=== PATIENT | female | born 1975 | race Caucasian/White ===

== ENCOUNTER → 2017-05-14 | Outpatient (CLI) | payer OTHER ==
--- NOTE | 2017-05-15 10:05 | REP ---
PELVIC SONOGRAPHY: HISTORY: Breakthrough bleeding. FINDINGS: Transabdominal and transvaginal scanning are performed. Uterine dimensions are normal at 8.8 x 4.3 x 5.5 cm. Endometrial stripe measures 0.8 cm. There is an anterior fibroid 1.6 cm in greatest diameter. No other focal uterine mass is seen. Visualized bladder ribeiro are smooth. Normal ovaries are seen. Right ovary dimensions are 1.8 x 1.9 x 2.5 cm. The left ovary measures 2.1 x 1.3 x 1.8 cm. Doppler flow is normal to both ovaries. Resistive indices are measured at 0.52 on the right and 0.36 on the left. IMPRESSION: 1.6 cm anterior fibroid seen. Otherwise, normal pelvic sonography.
--- NOTE | 2017-05-15 10:11 | REPMRS ---
Patient History The patient states she has not had a clinical breast exam in over a year. No known family history of cancer. Taking hormonal contraceptives for 1 year. Digital Woman Screen Mammo: May 14, 2017 - Exam #: [id number] Bilateral CC and MLO view(s) were taken. Technologist: Tena Edwards Technologist Prior study comparison: May 07, 2016, digital woman screen mammo performed at [facility]. FINDINGS: There are scattered fibroglandular densities. There has been no change in the appearance of the mammogram from the prior studies. There is a mild amount of scattered fibroglandular density which is fairly symmetric. There is no interval development of dominant mass, architectural distortion, or clustered microcalcification suggestive of malignancy. ASSESSMENT: BI-RADS/ACR category 1 mammogram. Negative. Recommendation Routine screening mammogram in 1 year (for women over age 40). This mammogram was interpreted with the aid of an FDA-approved computer-aided dectection system. Electronically Signed By: Neftali Anthony MD 05/15/17 1010
== END ==
LOC: M WHC 14:08
PROVIDERS: ATTEND Nurse Practitioner Women's Health
DX: Z12.31 Encounter for screening mammogram for malignant neoplasm of breast (principal); N92.1 Excessive and frequent menstruation with irregular cycle; Z79.3 Long term (current) use of hormonal contraceptives; D25.9 Leiomyoma of uterus, unspecified
CPT/HCPCS: 76830; 76856; G0202

== ENCOUNTER → 2018-05-08 | Outpatient (CLI) | payer OTHER | LOC: M WHC 15:08 | DX: Z12.31 Encounter for screening mammogram for malignant neoplasm of breast (principal); Z92.0 Personal history of contraception | CPT/HCPCS: 77067 ==

== ENCOUNTER → 2018-06-22 | Outpatient (REF) | payer OTHER ==
[~2018-06-22] MED LIST: BUSP10TA PO; FLUO20CA8 PO; LEVO125T4 PO; MELO15TA28 PO; VITA100067 PO
[2018-06-23 12:07] LABS: FREE T4 0.99 NG/DL (0.76-1.46); THYROID STIMULATING HORMONE 1.38 uIU/ML (0.358-3.740)
[2018-06-24 09:59] LABS: THYROID PEROXIDASE ANTIBODY 34.6 U/ML (<60.0)
== END ==
LOC: M LABDRAWC 08:30
PROVIDERS: ATTEND Nurse Practitioner Family
DX: E03.9 Hypothyroidism, unspecified (principal)

== ENCOUNTER 2018-06-25 05:45 | Day surgery (SDC) | payer OTHER ==
[~2018-06-25] VITALS: Ht 177.8 cm; Wt 104.3 kg
[2018-06-25] MEDS ORDERED: LR 1,000 ML IV ONE (06:00)
[2018-06-25] MEDS ORDERED: METHYLENE BLUE 0.5% (5MG/ML) 10 ML AMP (PROVAYBLUE)(Q9968 PER 1MG) As Ordered ONE (06:56)
[2018-06-25] MEDS ORDERED: ROCURONIUM BROMIDE 50 MG/5 ML VIAL As Ordered ONE ×2 (06:57→08:25)
[2018-06-25] MEDS ORDERED: LIDOCAINE 2% INJ 100 MG/5 ML SDV (FOR ANES.) As Ordered ONE (06:57)
[2018-06-25] MEDS ORDERED: MIDAZOLAM INJ 2 MG/2 ML VIAL (J2250) As Ordered ONE (06:57)
[2018-06-25] MEDS ORDERED: fentaNYL 250 MCG/5 ML INJECTION (J3010) As Ordered ONE (06:57)
[2018-06-25] MEDS ORDERED: PROPOFOL 200 MG/20 ML VIAL As Ordered ONE (06:57)
[2018-06-25] MEDS ORDERED: dexameTHASONE 4 MG/ML 1ML VIAL (J1100) As Ordered ONE (06:57)
[2018-06-25] MEDS ORDERED: ONDANSETRON 4MG/2ML VIAL (J2405) As Ordered ONE ×2 (06:57→08:27)
[2018-06-25 07:06] LABS: HEMATOCRIT 43.8 % (36.0-47.0); HEMOGLOBIN 14.4 g/dl (12.0-15.5); MEAN CORPUSCULAR HEMOGLOBIN 30.2 pg (27.0-33.0); MEAN CORPUSCULAR HGB CONC 32.9 g/dl (32.0-36.5); MEAN CORPUSCULAR VOLUME 91.8 fl (80.0-96.0); PLATELET COUNT, AUTOMATED 334 10^3/uL (150-450); RED BLOOD COUNT 4.77 10^6/uL (4.00-5.40); WHITE BLOOD COUNT 8.4 10^3/uL (4.0-10.0)
[2018-06-25 07:17] LABS: HCG, SERUM QUALITATIVE NEGATIVE (NEGATIVE)
[2018-06-25] MEDS ORDERED: METOCLOPRAMIDE INJ 10MG/2ML VIAL (J2765) As Ordered ONE (07:17)
[2018-06-25] MEDS ORDERED: SCOPOLAMINE 1MG TRANSDERMAL PATCH As Ordered ONE (07:19)
[2018-06-25] MEDS ORDERED: SCOPOLAMINE 1MG TRANSDERMAL PATCH TOP ONE (07:30)
[2018-06-25] MEDS ORDERED: ePHEDrine SULFATE 25 MG/5 ML(5MG/ML) SYRINGE As Ordered ONE (07:53)
[2018-06-25] MEDS ORDERED: SUGAMMADEX SODIUM 500 MG/5 ML VIAL (BRIDION) As Ordered ONE (08:25)
[2018-06-25] MEDS ORDERED: KETOROLAC 60 MG/2 ML VIAL (J1885) As Ordered ONE (08:27)
[2018-06-25] MEDS ORDERED: MORPHINE 1MG/ML IN 0.9% NACL 100ML IV BAG As Ordered ONE (10:04)
[2018-06-25] MEDS ORDERED: LR 1,000 ML IV SCH (10:30)
[2018-06-25] MEDS ORDERED: NALOXONE INJ 0.4 MG/1 ML VIAL (J2310) IV PRN (10:30)
[2018-06-25] MEDS ORDERED: fentaNYL 100 MCG/2 ML INJECTION (J3010) IV PRN (10:30)
[2018-06-25] MEDS ORDERED: ONDANSETRON 4MG/2ML VIAL (J2405) IV PRN (10:30)
[2018-06-25] MEDS ORDERED: EPIDURAL/PCA KEYS XX PRN (10:30)
[2018-06-25] MEDS ORDERED: NALBUPHINE HCL 10 MG/ML AMP (J2300) IV PRN (10:30)
[2018-06-25] MEDS ORDERED: PERCOCET 5MG/325MG TAB PO PRN (10:30)
[2018-06-25] MEDS ORDERED: diphenhydrAMINE INJ 50MG/ML VIAL (J1200) IV PRN (10:30)
[2018-06-25] MEDS ORDERED: MORPHINE 1MG/ML IN 0.9% NACL 100ML IV BAG IV PRN (10:30)
[2018-06-25] MEDS ORDERED: METOCLOPRAMIDE INJ 10MG/2ML VIAL (J2765) IV PRN (10:30)
[2018-06-25 11:15] VITALS: BP 130/76
[2018-06-25 11:45] VITALS: BP 140/70
[2018-06-25 12:45] VITALS: BP 138/73
--- NOTE | 2018-06-25 13:07 | RO ---
DATE OF PROCEDURE: 06/25/2018 PREOPERATIVE DIAGNOSES/INDICATION FOR SURGERY: Pain, bleeding, fibroids. POSTOPERATIVE DIAGNOSES: Pain, bleeding, fibroids. PROCEDURE: Robotic-assisted hysterectomy with bilateral salpingectomy and removal of intrauterine device (IUD). SURGEON: Dr. Norma Finnegan ENVELOPE STUFFER: Camelia Pollock ANESTHESIA: General endotracheal anesthesia. BRIEF DESCRIPTION OF PROCEDURE AND FINDINGS: Marleny was brought to the operating room, where sufficient general endotracheal anesthesia was induced. She was prepped, draped, and positioned in the usual sterile fashion with the IUD, which had failed to control her bleeding and pain removed and then the uterine manipulator placed and the Garnica catheter with the ability to backfill placed. We then turned our attention to the abdomen. A transverse, semilunar incision was made below the umbilicus. Sharp and blunt dissection were continued through the subcutaneous tissues to the level of the rectus fascia, which was carefully transversely incised under direct visualization, secured with #0 Vicryl retention sutures, and then the peritoneum entered under direct visualization, and the Manan cannula placed under direct visualization in an open laparoscopic technique. The CO2 insufflation was then begun. After adequate CO2 insufflation, the robot camera was used to visualize the abdomen and the peritoneal cavity. There were normal, shiny peritoneal surfaces throughout, with the exception in the left lower quadrant of a hernia repair, which was photographed. There were no excrescence, no ascites, no exudate, and the scarring was less than feared. The uterus was manipulated, and a left paratubal cyst was noted, but the ovaries themselves were normal in appearance, as hoped. Two left-left sided, one right side port for the operative tools were placed, and the robot was then docked, as is typical. I then moved to the console for the console work. The left then right tubes were carefully cauterized around the mesentery with care taken to avoid injury to the ovaries and then carefully the mesentery transected leaving the tubes attached to the uterus, but not to the patient. We then carefully cauterized and transected the utero-ovarian suspensory ligaments then the round ligaments bilaterally, and then carefully dissected through the broad ligament to let the ureters fall laterally and let the bladder be displaced anteriorly out of the way of the operative field. We then had some large vessels lateral to the uterus, especially on the left side, as we carefully cauterized these we, of course, backfilled the bladder so we knew we had the bladder displaced away from the operative field. After we had controlled the uterine vasculature, the uterus was elevated, and posteriorly we began with our colpotomy working carefully around to anteriorly and we began that incision just above the insertion of the uterosacrals leaving optimal support in this hysterectomy for benign indication, then carefully continued the dissection around the left side watching those vessels and then across the front and then carefully completed the transection of the vaginal cuff along the right side. The uterus was then removed into the vagina and used to maintain the peritoneum. V-Loc suture was then used to close the cuff. There was some bleeding along the patient's left side and so a third V-Loc suture, after two angle stitches and closure of the cuff we still had to come in with a third V-Loc, close that spot, and we let the pressure down and removed the uterus from the vagina to make sure that we were recreating the conditions that she would have after the end of the case as much as possible, especially, since the first time we let the pressure down, we had that oozing and had to come back again with that third suture; but, having done this, we did have good hemostasis. We had already irrigated and cleared the abdomen, and procedure was then ended with the CO2 allowed to escape the peritoneal cavity. Fascial wound at the umbilicus closed with #0 Vicryl suture and each of the skin wounds closed with #3-0 Vicryl in subcuticular stitches, and dry, sterile dressings then applied. ESTIMATED BLOOD LOSS FOR THE PROCEDURE: About 150 mL. FLUID REPLACEMENT: Was crystalloid. COMPLICATIONS: None. CONDITION AND DISPOSITION: Marleny Grant tolerated the procedure well and was recovering in the recovery room in good condition.
[2018-06-25 14:45] VITALS: BP 115/55
[2018-06-25] MEDS: LR 1,000 ML IV SCH ×2 (14:57→21:59)
[2018-06-25 16:00] VITALS: BP 130/59
[2018-06-25 20:00] VITALS: BP 120/59
[2018-06-25] MEDS: IBUPROFEN 600 MG TAB PO PRN (22:00)
[2018-06-26 00:11] VITALS: BP 132/68
[2018-06-26] MEDS: IBUPROFEN 600 MG TAB PO PRN (05:28)
[2018-06-26 05:58] VITALS: BP 125/65
[2018-06-26] MEDS ORDERED: NORCO, ANEXSIA 5/325MG TABLET (HYDROcodone/ACETAMINOPHEN) PO PRN (06:00)
[2018-06-26] MEDS ORDERED: LEVOTHYROXINE 125MCG TABLET (0.125MG) PO SCH (06:00)
[2018-06-26 06:53] LABS: HEMATOCRIT 36.8 % (36.0-47.0); MEAN CORPUSCULAR HGB CONC 33.4 g/dl (32.0-36.5); MEAN CORPUSCULAR VOLUME 92.7 fl (80.0-96.0); PLATELET COUNT, AUTOMATED 301 10^3/uL (150-450); RED BLOOD COUNT 3.97 10^6/uL (4.00-5.40)
[2018-06-26 06:57] LABS: HEMOGLOBIN 12.3 g/dl (12.0-15.5)
[2018-06-26 08:00] VITALS: BP 115/65
[2018-06-26] MEDS ORDERED: busPIRone 10 MG TAB PO SCH (09:00)
[2018-06-26] MEDS ORDERED: FLUoxetine 20 MG CAP PO SCH (09:00)
[2018-06-26 09:13] VITALS: BP 115/65
== END 2018-06-26 09:49 | disposition home or self-care (01) ==
LOC: M SDC 05:45 → M PED 11:15 → M SDC 11:26
PROVIDERS: ATTEND Obstetrics & Gynecology
DX: R10.2 Pelvic and perineal pain (principal); R93.9 Diagnostic imaging inconclusive due to excess body fat of patient; D25.1 Intramural leiomyoma of uterus; N83.8 Other noninflammatory disorders of ovary, fallopian tube and broad ligament; E03.9 Hypothyroidism, unspecified; M54.9 Dorsalgia, unspecified; M12.9 Arthropathy, unspecified; F41.9 Anxiety disorder, unspecified; F32.9 Major depressive disorder, single episode, unspecified; Z88.0 Allergy status to penicillin; Z79.899 Other long term (current) drug therapy
CPT/HCPCS: 36415; 58573; 84703; 85027; 86850; 86900; 86901; 88309; J0690; J1100; J1885; J2250; J2405; J2765; J3010; Q9968

== ENCOUNTER → 2019-06-08 | Outpatient (CLI) | payer OTHER ==
[~2019-06-08] MED LIST changes: +FLUO20CA20 PO; -FLUO20CA8 PO
--- NOTE | 2019-06-08 17:03 | REPMRS ---
Patient History The patient states she had a clinical breast exam in July 2018.The patient states she had a clinical breast exam in May 2019.No known family history of cancer. Taking hormonal contraceptives for 2 years. Digital Woman Screen Mammo: June 08, 2019 - Exam #: [id number] Bilateral CC and MLO view(s) were taken. Technologist: Verónica Dick, Technologist Prior study comparison: May 08, 2018, bilateral digital woman screen mammo performed at [facility]. May 14, 2017, digital woman screen mammo performed at [facility]. May 07, 2016, digital woman screen mammo performed at [facility]. FINDINGS: There are scattered fibroglandular densities. There has been no change in the appearance of the mammogram from the prior studies. There is a mild amount of scattered fibroglandular density which is fairly symmetric. There is no interval development of dominant mass, architectural distortion, or grouped microcalcification suggestive of malignancy. 3-D tomosynthesis shows no additional findings. Assessment: BI-RADS/ACR category 1 mammogram. Negative Mammogram. Recommendation Routine screening mammogram of both breasts in 1 year (for women over age 40). This patient's Lifetime Breast Cancer Risk is estimated at 10.7 %. This mammogram was interpreted with the aid of an FDA-approved computer-aided dectection system. Electronically Signed By: Neftali Anthony MD 06/08/19 5541
== END ==
LOC: M WHC 15:45
PROVIDERS: ATTEND Nurse Practitioner Women's Health
DX: Z12.31 Encounter for screening mammogram for malignant neoplasm of breast (principal); Z79.3 Long term (current) use of hormonal contraceptives

== ENCOUNTER → 2020-10-26 | Outpatient (REF) | payer OTHER ==
[2020-10-26 16:37] LABS: ALBUMIN 3.4 GM/DL (3.2-5.2); ALT/SGPT 27 U/L (12-78); BILIRUBIN,TOTAL 0.5 MG/DL (0.2-1.0); BLOOD UREA NITROGEN 8 MG/DL (7-18); CARBON DIOXIDE LEVEL 29 MEQ/L (21-32); CHLORIDE LEVEL 108 MEQ/L (98-107); CHOLESTEROL LEVEL 258 MG/DL (<200); CHOLESTEROL RISK RATIO 5.058 (<5); CREATININE FOR GFR 0.67 MG/DL (0.55-1.30); GLOMERULAR FILTRATION RATE > 60.0 (>58); GLUCOSE, FASTING 92 MG/DL (70-100); HDL CHOLESTEROL 51 MG/DL (>40); LDL CHOLESTEROL 177 MG/DL (<100); NON-HDL-C 207 MG/DL; POTASSIUM SERUM 4.6 MEQ/L (3.5-5.1); SODIUM LEVEL 140 MEQ/L (136-145); TRIGLYCERIDES LEVEL 148 MG/DL (<150)
== END ==
LOC: M LABDRAWC 15:27
PROVIDERS: ATTEND Internal Medicine
DX: E78.5 Hyperlipidemia, unspecified (principal); F41.9 Anxiety disorder, unspecified; E03.9 Hypothyroidism, unspecified

== ENCOUNTER → 2021-03-27 | Outpatient (REF) | payer OTHER | LOC: M WUC 11:08 | PROVIDERS: ATTEND Physician Assistant | DX: R30.0 Dysuria (principal) ==

== ENCOUNTER → 2021-09-03 | Outpatient (REF) | payer OTHER ==
[~2021-09-03] MED LIST changes: +FLUO-96 PO; -FLUO20CA20 PO
[2021-09-03 12:18] LABS: ALBUMIN 3.5 GM/DL (3.2-5.2); ALT/SGPT 31 U/L (12-78); BILIRUBIN,TOTAL 0.5 MG/DL (0.2-1.0); BLOOD UREA NITROGEN 9 MG/DL (7-18); CALCIUM LEVEL 9.5 MG/DL (8.5-10.1); CARBON DIOXIDE LEVEL 30 MEQ/L (21-32); CHLORIDE LEVEL 108 MEQ/L (98-107); CHOLESTEROL LEVEL 199 MG/DL (<200); CHOLESTEROL RISK RATIO 3.015 (<5); GLOMERULAR FILTRATION RATE > 60.0 (>58); GLUCOSE, FASTING 90 MG/DL (70-100); HDL CHOLESTEROL 66 MG/DL (>40); LDL CHOLESTEROL 112 MG/DL (<100); NON-HDL-C 133 MG/DL; POTASSIUM SERUM 4.3 MEQ/L (3.5-5.1); SODIUM LEVEL 142 MEQ/L (136-145); TOTAL PROTEIN 6.9 GM/DL (6.4-8.2); TRIGLYCERIDES LEVEL 106 MG/DL (<150)
== END ==
LOC: M LABDRAWC 11:04
PROVIDERS: ATTEND Internal Medicine
DX: E03.9 Hypothyroidism, unspecified (principal); E78.5 Hyperlipidemia, unspecified

== ENCOUNTER → 2021-12-18 | Outpatient (CLI) | payer OTHER | LOC: M WHC 08:45 | PROVIDERS: ATTEND Internal Medicine | DX: Z12.31 Encounter for screening mammogram for malignant neoplasm of breast (principal) ==

== ENCOUNTER → 2022-03-21 | Outpatient (CLI) | payer OTHER | LOC: M WHC 15:17 | PROVIDERS: ATTEND Internal Medicine | DX: E03.9 Hypothyroidism, unspecified (principal); Z79.890 Hormone replacement therapy ==

== ENCOUNTER → 2022-08-07 | Outpatient (REF) | payer OTHER | LOC: M WUC 20:00 | PROVIDERS: ATTEND Student in an Organized Health Care Education/Training Program | DX: J02.9 Acute pharyngitis, unspecified (principal) ==

== ENCOUNTER → 2022-12-02 | Outpatient (REF) | payer OTHER ==
[2022-12-02 13:38] LABS: THYROID STIMULATING HORMONE 0.845 uIU/ML (0.55-4.78)
[2022-12-02 13:42] LABS: ALBUMIN 3.3 G/DL (3.2-5.2); ALKALINE PHOSPHATASE 76 U/L (46-116); ALT/SGPT 13 U/L (7.0-40); AST/SGOT < 8 U/L (<34); BILIRUBIN,TOTAL 0.7 MG/DL (0.3-1.2); BLOOD UREA NITROGEN 11 MG/DL (9-23); CALCIUM LEVEL 8.7 MG/DL (8.5-10.1); CARBON DIOXIDE LEVEL 27 MMOL/L (20-31); CHLORIDE LEVEL 106 MMOL/L (98-107); CHOLESTEROL LEVEL 156 MG/DL (<200); CHOLESTEROL RISK RATIO 2.78 (<5); CREATININE FOR GFR 0.61 MG/DL (0.55-1.30); GLOMERULAR FILTRATION RATE > 60.0 (>58); GLUCOSE, FASTING 101 MG/DL (60-100); HDL CHOLESTEROL 56.1 MG/DL (>40); LDL CHOLESTEROL 75.1 MG/DL (<100); NON-HDL-C 99.9 MG/DL; POTASSIUM SERUM 4.4 MMOL/L (3.5-5.1); SODIUM LEVEL 140 MMOL/L (136-145); TOTAL PROTEIN 6.6 G/DL (5.7-8.2); TRIGLYCERIDES LEVEL 124 MG/DL (<150)
== END ==
LOC: M LABDRAWC 12:00
PROVIDERS: ATTEND Internal Medicine
DX: E78.5 Hyperlipidemia, unspecified (principal); E03.9 Hypothyroidism, unspecified

== ENCOUNTER → 2022-12-19 | Outpatient (CLI) | payer OTHER | LOC: M WHC 10:36 | PROVIDERS: ATTEND Internal Medicine | DX: Z12.31 Encounter for screening mammogram for malignant neoplasm of breast (principal) ==

== ENCOUNTER → 2023-04-23 | Outpatient (CLI) | payer OTHER ==
[2023-04-23 16:48] LABS: ALBUMIN 3.6 G/DL (3.2-5.2); ALKALINE PHOSPHATASE 93 U/L (46-116); ALT/SGPT 22 U/L (7.0-40); AST/SGOT 14 U/L (<34); BILIRUBIN,TOTAL 0.4 MG/DL (0.3-1.2); BLOOD UREA NITROGEN 12 MG/DL (9-23); CALCIUM LEVEL 9.4 MG/DL (8.5-10.1); CARBON DIOXIDE LEVEL 26 MMOL/L (20-31); CHLORIDE LEVEL 105 MMOL/L (98-107); CHOLESTEROL LEVEL 186 MG/DL (<200); CHOLESTEROL RISK RATIO 3.81 (<5); CREATININE FOR GFR 0.66 MG/DL (0.55-1.30); GLOMERULAR FILTRATION RATE > 60.0 (>58); GLUCOSE, FASTING 82 MG/DL (60-100); HDL CHOLESTEROL 48.7 MG/DL (>40); LDL CHOLESTEROL 98.7 MG/DL (<100); NON-HDL-C 137.3 MG/DL; POTASSIUM SERUM 4.5 MMOL/L (3.5-5.1); SODIUM LEVEL 139 MMOL/L (136-145); THYROID STIMULATING HORMONE 2.759 uIU/ML (0.55-4.78); TOTAL PROTEIN 7.1 G/DL (5.7-8.2); TRIGLYCERIDES LEVEL 193 MG/DL (<150)
== END ==
LOC: M WUC 12:12
PROVIDERS: ATTEND Internal Medicine
DX: E78.5 Hyperlipidemia, unspecified (principal); E03.9 Hypothyroidism, unspecified; M85.88 Other specified disorders of bone density and structure, other site

== ENCOUNTER → 2023-12-05 | Outpatient (REF) | payer OTHER ==
[2023-12-05 14:23] LABS: ALBUMIN 3.6 G/DL (3.2-5.2); ALKALINE PHOSPHATASE 95 U/L (46-116); ALT/SGPT 24 U/L (7.0-40); AST/SGOT < 8 U/L (<34); BILIRUBIN,TOTAL 0.4 MG/DL (0.3-1.2); BLOOD UREA NITROGEN 11 MG/DL (9-23); CALCIUM LEVEL 9.5 MG/DL (8.5-10.1); CARBON DIOXIDE LEVEL 27 MMOL/L (20-31); CHLORIDE LEVEL 108 MMOL/L (98-107); CHOLESTEROL LEVEL 160 MG/DL (<200); CHOLESTEROL RISK RATIO 3.11 (<5); CREATININE FOR GFR 0.69 MG/DL (0.55-1.30); GLOMERULAR FILTRATION RATE > 60.0 (>51); GLUCOSE, FASTING 110 MG/DL (60-100); HDL CHOLESTEROL 51.3 MG/DL (>40); LDL CHOLESTEROL 90.3 MG/DL (<100); NON-HDL-C 108.7 MG/DL; SODIUM LEVEL 141 MMOL/L (136-145); TRIGLYCERIDES LEVEL 92 MG/DL (<150)
[2023-12-05 14:25] LABS: THYROID STIMULATING HORMONE 0.387 uIU/ML (0.55-4.78)
== END ==
LOC: M LABDRAWC 12:47
PROVIDERS: ATTEND Internal Medicine
DX: E78.5 Hyperlipidemia, unspecified (principal); E03.9 Hypothyroidism, unspecified

== ENCOUNTER → 2024-01-14 | Outpatient (CLI) | payer OTHER | LOC: M WHC 10:22 | PROVIDERS: ATTEND Internal Medicine | DX: Z12.31 Encounter for screening mammogram for malignant neoplasm of breast (principal) ==

== ENCOUNTER → 2024-07-01 | Outpatient (REF) | payer OTHER ==
[2024-07-01 17:55] LABS: ALBUMIN 3.3 G/DL (3.2-5.2); ALKALINE PHOSPHATASE 91 U/L (35-104); ALT/SGPT 22 U/L (7.0-40); AST/SGOT 12 U/L (<34); BILIRUBIN,TOTAL 0.4 MG/DL (0.3-1.2); BLOOD UREA NITROGEN 12 MG/DL (9-23); CALCIUM LEVEL 8.8 MG/DL (8.5-10.1); CARBON DIOXIDE LEVEL 28 MMOL/L (20-31); CHLORIDE LEVEL 107 MMOL/L (98-107); CHOLESTEROL LEVEL 184 MG/DL (<200); CHOLESTEROL RISK RATIO 3.17 (<5); CREATININE FOR GFR 0.66 MG/DL (0.55-1.30); GLOMERULAR FILTRATION RATE > 60.0 (>51); GLUCOSE, FASTING 88 MG/DL (60-100); HDL CHOLESTEROL 57.9 MG/DL (>40); LDL CHOLESTEROL 106.9 MG/DL (<100); NON-HDL-C 126.1 MG/DL; POTASSIUM SERUM 4.3 MMOL/L (3.5-5.1); SODIUM LEVEL 143 MMOL/L (136-145); TOTAL PROTEIN 6.9 G/DL (5.7-8.2); TRIGLYCERIDES LEVEL 96 MG/DL (<150)
== END ==
LOC: M LABDRAWC 17:18
PROVIDERS: ATTEND Internal Medicine
DX: E78.5 Hyperlipidemia, unspecified (principal); E03.9 Hypothyroidism, unspecified

== ENCOUNTER → 2024-08-02 | Outpatient (CLI) | payer OTHER | LOC: M WHC 10:17 | PROVIDERS: ATTEND Internal Medicine | DX: E04.0 Nontoxic diffuse goiter (principal) ==

== ENCOUNTER → 2025-05-03 | Outpatient (CLI) | payer OTHER | LOC: M WHC 15:04 | PROVIDERS: ATTEND Internal Medicine | DX: Z12.31 Encounter for screening mammogram for malignant neoplasm of breast (principal); E03.9 Hypothyroidism, unspecified; R92.323 Mammographic fibroglandular density, bilateral breasts ==